=== PATIENT | female | born 2000 | race Caucasian/White ===

== ENCOUNTER 2022-06-11 23:32 | Emergency (ER) | payer MEDICAID ==
[~2022-06-11] VITALS: Ht 165.1 cm; Wt 101.2 kg
[2022-06-11 23:35] VITALS: BP_SYST 96
--- NOTE | 2022-06-11 23:35 | NUR ---
Triaged and placed patient to ER bed 4 for evaluation. Report given to Haroldo RN for continuity of care. Bed placed in lowest position with side rails up. Instructed to notify ED staff for any changes in condition or worsening of symptoms while waiting to be seen by a provider. Patient verbalized understanding.
--- NOTE | 2022-06-11 23:43 | NUR ---
Dr. Ahumada at bedside examining the patient.
[2022-06-11] MEDS ORDERED: IBUP-1971 PO (23:54)
[2022-06-11] MEDS ORDERED: PRED20TA PO (23:54)
[2022-06-12] MEDS ORDERED: KETOROLAC TROMETHAMINE 60 MG/2 ML VIAL IM ONE
[2022-06-12] MEDS ORDERED: PENICILLIN G BENZATHINE 1.2 MMU/2 ML SYR IM ONE
[2022-06-12 00:25] VITALS: BP_SYST 18
== END 2022-06-11 23:58 | disposition home or self-care (01) ==
LOC: SED 23:32
DX: A49.1 Streptococcal infection, unspecified site (principal); R50.9 Fever, unspecified; H92.01 Otalgia, right ear; Z79.899 Other long term (current) drug therapy
CPT/HCPCS: 99283; 96372; J0561; J1885

== ENCOUNTER 2022-11-22 20:36 | Emergency (ER) | payer OTHER, MEDICAID ==
[~2022-11-22] VITALS: Ht 167.6 cm; Wt 97.5 kg
[~2022-11-22 20:36] MED LIST: IBUP-1971 PO; PRED20TA PO
[2022-11-22 20:50] VITALS: BP_SYST 116; PULSE 80; RESP 16; TEMP 97.3; O2SAT 98
[2022-11-22] MEDS ORDERED: DIPHTH,PERTUSS(ACELL),TET VAC 0.5 ML VIAL (Tdap) I.M. ONE (21:00)
[2022-11-22] MEDS ORDERED: BACITRACIN 1 GM OINT TP ONE (21:00)
[2022-11-22] MEDS ORDERED: LIDOCAINE 1% 10 MG/ML, 20 ML MDV INJ ONE (21:00)
[2022-11-22 21:39] VITALS: BP_SYST 116; PULSE 80; RESP 16; TEMP 97.3; O2SAT 98
== END 2022-11-22 21:39 | disposition home or self-care (01) ==
LOC: SED 20:36
DX: S61.211A Laceration without foreign body of left index finger without damage to nail, initial encounter (principal); Z79.899 Other long term (current) drug therapy; W26.0XXA Contact with knife, initial encounter; Y93.89 Activity, other specified; Y92.89 Other specified places as the place of occurrence of the external cause; Y99.8 Other external cause status
CPT/HCPCS: 90715; 99283

== ENCOUNTER 2022-11-25 09:31 | Emergency (ER) | payer OTHER, MEDICAID ==
[~2022-11-25] VITALS: Ht 167.6 cm; Wt 97.5 kg
[2022-11-25 09:36] VITALS: BP_SYST 111; PULSE 74; RESP 16; TEMP 97.1; O2SAT 97
[2022-11-25 10:09] VITALS: BP_SYST 124; PULSE 64; RESP 16; TEMP 97.9; O2SAT 97
== END 2022-11-25 10:08 | disposition home or self-care (01) ==
LOC: SED 09:31
DX: Z48.00 Encounter for change or removal of nonsurgical wound dressing (principal); Z79.899 Other long term (current) drug therapy
CPT/HCPCS: 99281

== ENCOUNTER 2022-12-07 15:54 | Emergency (ER) | payer OTHER, MEDICAID ==
[~2022-12-07] VITALS: Ht 165.1 cm; Wt 99.8 kg
[2022-12-07 15:57] VITALS: BP_SYST 116; PULSE 101; RESP 17; TEMP 96.8; O2SAT 97
[2022-12-07 16:13] VITALS: BP_SYST 116; PULSE 101; RESP 17; TEMP 96.8; O2SAT 97
== END 2022-12-07 16:13 | disposition home or self-care (01) ==
LOC: SED 15:54
DX: Z48.02 Encounter for removal of sutures (principal); Z79.899 Other long term (current) drug therapy
CPT/HCPCS: 99281

== ENCOUNTER 2023-05-16 17:00 | Emergency (ER) | payer MEDICAID, OTHER ==
[~2023-05-16] VITALS: Ht 167.6 cm; Wt 104.3 kg
[2023-05-16 17:56] VITALS: BP_SYST 105; PULSE 97; RESP 16; TEMP 98.1; O2SAT 99
[2023-05-16 19:17] LABS: BASOPHILS # (AUTO) 0.1 K/uL (0.0-0.2); BASOPHILS % (AUTO) 0.9 % (0.0-2.0); EOSINOPHILS # (AUTO) 0.1 K/uL (0.0-0.4); EOSINOPHILS % (AUTO) 1.2 % (0.0-4.0); HEMOGLOBIN 14.1 g/dL (12.0-16.0); LYMPHOCYTES # (AUTO) 3.3 K/uL (1.0-5.5); LYMPHOCYTES % (AUTO) 28.8 % (20.5-51.5); MEAN CORPUSCULAR HEMOGLOBIN 29 pg (27-31); MEAN CORPUSCULAR HGB CONC 34 % (32-36); MEAN CORPUSCULAR VOLUME 87 fL (79.0-98.0); MONOCYTES # (AUTO) 0.8 K/uL (0.0-1.0); NEUTROPHILS # (AUTO) 7.2 K/uL (1.8-7.7); NEUTROPHILS % (AUTO) 62.1 % (40.0-70.0); PLATELET COUNT (AUTO) 329 K/uL (130-430); RED BLOOD CELL COUNT(AUTO) 4.85 MIL/uL (4.2-6.2); RED CELL DISTRIBUTION WIDTH 12.6 % (9.0-15.0); WHITE BLOOD COUNT (AUTO) 11.6 K/uL (4.8-10.8)
[2023-05-16 19:31] LABS: INR 0.9 (0.8-1.2); PROTHROMBIN TIME 9.3 SECS (9.5-12.5)
[2023-05-16 19:32] LABS: CALCIUM 9.5 mg/dL (8.4-11.0); CREATININE 0.59 mg/dL (0.55-1.30); POTASSIUM 3.9 mmol/L (3.5-5.1)
[2023-05-16 21:23] VITALS: BP_SYST 111; PULSE 100; RESP 16; TEMP 97.4; O2SAT 98
== END 2023-05-16 21:23 | disposition home or self-care (01) ==
LOC: SED 17:00
DX: K92.1 Melena (principal); R19.7 Diarrhea, unspecified; R10.30 Lower abdominal pain, unspecified; Z79.899 Other long term (current) drug therapy
CPT/HCPCS: 36415; 80048; 85025; 85610; 85730; 99283